=== PATIENT | female | born 1990 | race Caucasian/White ===

== ENCOUNTER 2017-04-02 11:43 | Emergency (ER) | payer OTHER ==
[~2017-04-02] VITALS: Ht 167.6 cm; Wt 96.0 kg
[~2017-04-02 11:43] MED LIST: MACR100C PO; PERC5TAB12 PO; Z.0.BCPILL PO; ZOFR4TAB3 SL
[2017-04-02 12:21] VITALS: BP 190/125; PULSE 82; RESP 16; TEMP 98.2; O2SAT 100
[2017-04-02 13:25] VITALS: BP 183/122; PULSE 78; RESP 20; O2SAT 98
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
[2017-04-02 14:01] VITALS: BP 186/108
[2017-04-02] MEDS ORDERED: LABETALOL HCL 100 MG/20 ML VIAL IV PUSH SCH (14:15)
[2017-04-02 14:52] LABS: BILIRUBIN, URINE NEG (NEG); BLOOD, URINE NEG (NEG); GLUCOSE,URINE NEG (NEG); KETONE, URINE NEG (NEG); NITRITE,URINE NEG (NEG); URINE LEUKOCYTE ESTERASE NEG (NEG)
[2017-04-02 14:54] VITALS: BP 190/117; PULSE 83; RESP 20; O2SAT 98
[2017-04-02 15:04] LABS: SQUAMOUS EPITHELIAL CELL URINE 0-5 /hpf (0-5); URINE COLOR YELLOW (YELLW/STRAW)
[2017-04-02] MEDS ORDERED: LABETALOL HCL 100 MG/20 ML VIAL IV PUSH ONE (15:15)
[2017-04-02] MEDS ORDERED: ZITHTAB PO (15:25)
[2017-04-02] MEDS ORDERED: LABE100T2 PO (15:25)
[2017-04-02 15:38] VITALS: BP 171/106; PULSE 87; O2SAT 98
[2017-04-03] MEDS ORDERED: PREN29TA PO (17:25)
== END 2017-04-02 16:02 | disposition home or self-care (01) ==
LOC: PHED 11:43
DX: O16.9 Unspecified maternal hypertension, unspecified trimester (principal); O99.512 Diseases of the respiratory system complicating pregnancy, second trimester; J06.9 Acute upper respiratory infection, unspecified; J45.909 Unspecified asthma, uncomplicated
CPT/HCPCS: 81001; 87804; 96374

== ENCOUNTER 2017-04-03 12:34 | Inpatient (IN) | payer OTHER ==
[~2017-04-03] VITALS: Ht 165.1 cm; Wt 96.0 kg
[2017-04-03] VITALS (43 sets, daily range): BP systolic 134–173; BP diastolic 85–118; PULSE 76–102; RESP 16–18; TEMP 98
[~2017-04-03 12:34] MED LIST changes: +LABE100T2 PO; -MACR100C PO; -PERC5TAB12 PO; -Z.0.BCPILL PO; +ZITHTAB PO; -ZOFR4TAB3 SL
[2017-04-03] MEDS ORDERED: MAGNESIUM SULFATE 40 GM PREMIX 1,000 ML IV SCH (13:59)
--- NOTE | 2017-04-03 13:59 | PD ---
HPI Chief Complaint High blood pressure Date Seen: Apr 03, 2017 Time Seen: 13:55 Travel History International Travel<30 Days: No Contact w/Intl Traveler<30Days: No Known Affected Area: No History of Present Illness HPI 27-year-old who is at 23 weeks and 6 days was seen in the [place] emergency department yesterday due to upper respiratory symptoms. While she was there patient developed hypertension she states her highest blood pressure was 184/123 and was given multiple doses of IV labetalol per patient oral history. Patient was discharged after a few hours and given azithromycin to take at home and labetalol 100 mg to take twice daily. Patient denies history of hypertension the past and states that she's had a uncomplicated thus far and has been normotensive during her . Weeks Gestation: 23 (23.6) Para: 0 : 1 History Past Medical History Medical History: Denies Significant Hx Past Surgical History Narrative Surgical Tonsillectomy Family History Family History: Negative Social History Alcohol Use: No Tobacco Use: No Substance Abuse: No Allergies-Medications (Allergen,Severity, Reaction): Coded Allergies: Sulfa (Sulfonamide Antibiotics) (Verified Allergy, Severe, RASH, 04/02/17) albuterol (Verified Allergy, Severe, NAUSEA, 04/02/17) penicillin G (Verified Allergy, Severe, RASH, 04/02/17) Home Meds Active Scripts Labetalol (Labetalol) 100 Mg Tab, 100 MG PO BID for Blood Pressure Management, # 60 TAB 0 Refills Prov:Mary Lou Jordan MD 04/02/17 Azithromycin (Zithromax Z-Nikhil) 250 Mg Dspk, 250 MG PO DIRECTED for Infection , #1 DSPK 0 Refills 500 MG (2 tabs) day 1, then 1 tab days 2-5. Prov:Mary Lou Jordan MD 04/02/17 Review of Systems Except as stated in HPI: all other systems reviewed are Neg Physical Exam Narrative GENERAL: Well-nourished, well-developed patient. SKIN: Warm and dry. HEAD: Normocephalic and atraumatic. EYES: No scleral icterus. No injection or drainage. ENT: No nasal drainage noted. Mucous membranes pink. Airway patent. NECK: Supple, trachea midline. No JVD. CARDIOVASCULAR: Regular rate and rhythm without murmurs, gallops, or rubs. RESPIRATORY: Breath sounds equal bilaterally. No accessory muscle use. BREASTS: Bilateral exam showed no masses , no retractions, no nipple discharge. ABDOMEN/GI: Abdomen soft, non-tender, bowel sounds present, no rebound, no guarding Gravid to [23-] weeks size Fundal Height: [-] GENITOURINARY: Deferred External Genitalia: intact and normal in appearance BUS glands: [-] Cervix: [-] Dilatation: [-] Effacement: [-] Station: [-] Presentation: [-] Membranes: [intact or ruptured] Uterine Contractions: [-] FHT's: Category: [1-] Baseline: [-] 140 Reactive: [-] Moderate Variability: [-] Moderate Decels: [-] Absent EXTREMITIES: No cyanosis or edema. BACK: Nontender without obvious deformity. No CVA tenderness. NEUROLOGICAL: Awake and alert. Motor and sensory grossly within normal limits. Five out of 5 muscle strength in all muscle groups. Normal speech. Data Data Vital Signs Reviewed: Yes (blood pressure is 174/115) [facility] Medical Record Reviewed: Yes Plan 27-year-old who is a 23 weeks, 6 days presents with severely elevated blood pressure and was seen yesterday in the [place] emergency department was placed on labetalol 100 mg twice daily. Patient will need to be admitted for blood pressure control, workup for preeclampsia, ultrasound, magnesium sulfate, possible betamethasone Diagnosis Diagnosis: Primary Impression: 23 weeks gestation of Additional Impression: Severe hypertension affecting in second trimester Pamela Petersen MD Apr 03, 2017 13:59
[2017-04-03] MEDS ORDERED: SODIUM CHLORIDE 0.9% FLUSH 10 ML FLUSH IV FLUSH PRN (14:00)
[2017-04-03] MEDS ORDERED: ACETAMINOPHEN 325 MG TAB PO PRN (14:00)
[2017-04-03] MEDS ORDERED: CALCIUM GLUCONATE 10% 1 GM/10 ML VIAL IV PUSH PRN (14:00)
[2017-04-03] MEDS ORDERED: ONDANSETRON HCL 4 MG/2 ML VIAL IV PUSH PRN (14:00)
[2017-04-03] MEDS ORDERED: MAGNESIUM SULFATE 4 GM PREMIX 100 ML IV ONE (14:00)
[2017-04-03] MEDS ORDERED: LABETALOL HCL 100 MG/20 ML VIAL IV PUSH PRN ×2 (14:00→14:15)
[2017-04-03] MEDS ORDERED: LIDOCAINE 2% JELLY 30 ML TUBE TOPICAL ONE (14:30)
[2017-04-03 14:36] LABS: HEMATOCRIT 38.3 % (35.0-46.0); MEAN CELL VOLUME 84.3 FL (80.0-100.0); MEAN CORPUSCULAR HEMOGLOBIN 28.7 PG (27.0-34.0); MEAN PLATELET VOLUME 9.4 FL (7.0-11.0); PLATELET COUNT 251 TH/MM3 (150-450); RED BLOOD COUNT 4.54 MIL/MM3 (4.00-5.30); RED CELL DISTRIBUTION WIDTH 13.4 % (11.6-17.2); WHITE BLOOD COUNT 12.6 TH/MM3 (4.0-11.0)
[2017-04-03] MEDS: LACTATED RINGER'S 1000 ML INJ 1,000 ML IV SCH (14:39)
[2017-04-03] MEDS: BETAMETHASONE SOD PHOS/ACETATE SUSP 30 MG/5 ML VIAL IM SCH (14:41)
[2017-04-03 15:01] LABS: ALBUMIN 2.8 GM/DL (3.4-5.0); ALT (GPT) 15 U/L (10-53); AST (GOT) 18 U/L (15-37); BICARBONATE 24.7 MEQ/L (21.0-32.0); BLOOD UREA NITROGEN 6 MG/DL (7-18); CALCIUM 9.2 MG/DL (8.5-10.1); CHLORIDE 106 MEQ/L (98-107); CREATININE 0.51 MG/DL (0.50-1.00); GLOMERULAR FILTRATION RATE 147 ML/MIN (>89); GLUCOSE,RANDOM 62 MG/DL (74-106); SODIUM (NA) 138 MEQ/L (136-145)
[2017-04-03 15:04] LABS: ALKALINE PHOSPHATASE 111 U/L (45-117); TOTAL BILIRUBIN ADULT 0.3 MG/DL (0.2-1.0); TOTAL PROTEIN 7.1 GM/DL (6.4-8.2)
[2017-04-03] MEDS ORDERED: LABETALOL HCL 100 MG/20 ML VIAL IV PUSH ONE (17:00)
[2017-04-03 17:09] LABS: BILIRUBIN, URINE NEG (NEG); BLOOD, URINE NEG (NEG); GLUCOSE,URINE NEG (NEG); KETONE, URINE NEG (NEG); NITRITE,URINE NEG (NEG); PH, URINE 5.5 (5.0-8.5); SQUAMOUS EPITHELIAL CELL URINE <1 /hpf (0-5); URINE COLOR LIGHT-YELLOW (YELLW/STRAW); URINE LEUKOCYTE ESTERASE NEG (NEG)
[2017-04-03] MEDS ORDERED: PREN29TA PO (17:25)
[2017-04-03] MEDS ORDERED: LIDOCAINE 2% JELLY 5 ML TUBE TOPICAL ONE (18:00)
--- NOTE | 2017-04-03 19:28 | PD.CONS ---
History & Physical H&P Pt seen this evening to discuss reason for admission. discussed that she had severe range BP and medication needed to be slowly titrated and that pre-e workup needed to be completed. She is receiving Magnesium and bms in the event that delivery may be necessary for protection. She states that she is feeling well other than sinus congestion. She denies any current CANCHOLA, no blurry vision, scotoma, RUQ or epigastric pain. She has received labetalol 20mg Iv and 40 mg IV and now has bp of 150/100's. Family is upset about the care they received at [facility]; She had IV medication and was sent home as soon as BP was not severe. Her BP logs at home were 140/ 100's. She called office today and had complaints of headaches. I reviewed her visit record from [facility] and recommended she come in to [facility] for pre- eclampsia workup. Discussed w pt that if she does have pre-eclampsia, usual care is to stay in hospital until delivery. Alternative of outpt management would still require bedrest and frequent labs and testing and would have to be approved by [facility]. Pt is not very happy about possibility of not being able to return to work. We had clark in place for accurate I/O and 24 hour urine collection but she did not tolerate it and requested removal. Since removal she is more comfortable. Udip negative protein, P:C both pr and cr under measurable limits. All labs wnl. Will repeat labs in am and await result of 24 hour urine for further management. She will receive nifedipine XR this evening. Will have q shift nst. Shira Hall MD Apr 03, 2017 19:28
[2017-04-03] MEDS: NIFEdipine 30 MG SUSTAINED RELEASE TAB PO SCH (20:05)
[2017-04-04] VITALS (41 sets, daily range): BP systolic 112–154; BP diastolic 66–102; PULSE 89–106; RESP 16–20; TEMP 97.7–98.8
[2017-04-04] MEDS: LACTATED RINGER'S 1000 ML INJ 1,000 ML IV SCH (03:03)
[2017-04-04 05:56] LABS: AUTOMATED NEUTROPHIL # 12.5 TH/MM3 (1.8-7.7); BASOPHIL % 0.1 % (0.0-2.0); HEMATOCRIT 38.3 % (35.0-46.0); HEMOGLOBIN 13.1 GM/DL (11.6-15.3); LYMPHOCYTE # 1.6 TH/MM3 (1.0-4.8); MEAN CELL VOLUME 84.1 FL (80.0-100.0); MEAN CORPUSCULAR HEMOGLOBIN 28.7 PG (27.0-34.0); MEAN CORPUSCULAR HGB CONC 34.1 % (32.0-36.0); MEAN PLATELET VOLUME 9.3 FL (7.0-11.0); MONOCYTE # 0.4 TH/MM3 (0-0.9); NEUT % 85.9 % (16.0-70.0); PLATELET COUNT 244 TH/MM3 (150-450); RED BLOOD COUNT 4.55 MIL/MM3 (4.00-5.30); RED CELL DISTRIBUTION WIDTH 14.1 % (11.6-17.2); WHITE BLOOD COUNT 14.5 TH/MM3 (4.0-11.0)
[2017-04-04 06:19] LABS: ALBUMIN 2.8 GM/DL (3.4-5.0); ALKALINE PHOSPHATASE 104 U/L (45-117); ALT (GPT) 14 U/L (10-53); AST (GOT) 12 U/L (15-37); BICARBONATE 22.7 MEQ/L (21.0-32.0); BLOOD UREA NITROGEN 3 MG/DL (7-18); CALCIUM 7.5 MG/DL (8.5-10.1); CHLORIDE 105 MEQ/L (98-107); GLOMERULAR FILTRATION RATE 150 ML/MIN (>89); GLUCOSE,RANDOM 113 MG/DL (74-106); SODIUM (NA) 136 MEQ/L (136-145); TOTAL BILIRUBIN ADULT 0.3 MG/DL (0.2-1.0); TOTAL PROTEIN 6.9 GM/DL (6.4-8.2)
--- NOTE | 2017-04-04 07:22 | PD.OB.ANTE ---
Subjective Diagnosis: (1) 24 weeks gestation of (2) Severe hypertension affecting in second trimester Interval History 27 yo mwf at 24 weeks who presented 48 hours ago to [place] ED for URT symptoms and to rule out influenza A. States she cannot get vaccine due to her mom's compromised immune system and desire to be around her. Influenza A negative but blood pressures were exceedingly high. She was discharged on oral antibiotic, but checked in with Dr. Rodriguez to verify this was appropriate and sent to our [facility] the next day (yesterday) Again BPs very high. No significant CANCHOLA above baseline. No nausea, vomiting, RUQT. Had not noticed significant swelling, blurred vision. Was having consistent movement. No signs of labor. Hypertensive protocol with labetalol was not adequate and her BPs only went down with procardia orally. They have since remained normal. She remains assymptomatic. Labs are entirely normal so far. PNC with Dr. Rodriguez has been unremarkable. No personal history or autoimmune or hypertensive disease although she has had lupus work ups in past for personal rosaciea and history of SLE in her mother. There is a strong family history or essential hypertension. She does not smoke, drink or use illicit drugs. 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 Good family support system. Objective Vital Signs Vital Signs Date Time Temp Pulse Resp B/P (MAP) Pulse Ox O2 Delivery O2 Flow Rate FiO2 04/04/17 07:00 103 142/94 (110) 04/04/17 06:07 16 04/04/17 05:29 16 04/04/17 05:00 98 123/75 (91) 04/04/17 04:30 16 04/04/17 04:00 100 112/67 (82) 04/04/17 03:30 97.7 18 04/04/17 03:00 94 121/76 (91) 04/04/17 02:30 18 04/04/17 02:00 102 122/79 (93) 04/04/17 01:00 102 122/66 (84) 04/04/17 00:19 97.7 04/04/17 00:10 16 04/04/17 00:00 99 125/81 (96) 1/30/18 23:00 101 16 144/97 (113) 04/03/17 22:07 16 04/03/17 22:00 98 134/85 (101) 04/03/17 21:15 16 04/03/17 21:03 98 159/98 (118) 04/03/17 20:00 98.0 16 04/03/17 19:59 99 149/101 (117) 04/03/17 19:55 96 04/03/17 19:35 102 04/03/17 19:30 100 04/03/17 18:31 88 153/101 (118) 04/03/17 18:30 93 04/03/17 18:25 87 04/03/17 18:20 92 04/03/17 18:15 92 04/03/17 18:10 93 04/03/17 18:05 91 04/03/17 18:01 97 154/107 (123) 04/03/17 18:00 88 04/03/17 17:30 98.0 18 04/03/17 17:27 90 144/96 (112) 04/03/17 17:25 91 04/03/17 17:16 92 151/107 (122) 04/03/17 17:15 90 04/03/17 16:43 95 173/118 (136) 04/03/17 16:40 88 04/03/17 16:31 86 173/107 (129) 04/03/17 16:30 87 04/03/17 16:01 86 156/100 (118) 04/03/17 16:00 87 04/03/17 15:41 81 18 157/105 (122) 04/03/17 15:40 91 04/03/17 15:05 85 04/03/17 15:05 84 157/106 (123) 04/03/17 15:01 88 165/107 (126) 04/03/17 14:55 90 159/109 (126) 04/03/17 14:50 93 155/115 (128) 04/03/17 14:46 87 159/111 (127) 04/03/17 14:40 90 04/03/17 14:40 85 164/107 (126) 04/03/17 14:36 18 04/03/17 14:35 80 153/106 (122) 04/03/17 14:35 77 04/03/17 14:33 76 154/107 (123) 04/03/17 14:31 81 156/106 (123) 04/03/17 14:30 90 Lab & Micro Results Test 04/03/17 14:19 04/03/17 16:30 04/04/17 05:06 White Blood Count 12.6 TH/MM3 14.5 TH/MM3 Red Blood Count 4.54 MIL/MM3 4.55 MIL/MM3 Hemoglobin 13.0 GM/DL 13.1 GM/DL Hematocrit 38.3 % 38.3 % Mean Corpuscular Volume 84.3 FL 84.1 FL Mean Corpuscular Hemoglobin 28.7 PG 28.7 PG Mean Corpuscular Hemoglobin Concent 34.0 % 34.1 % Red Cell Distribution Width 13.4 % 14.1 % Platelet Count 251 TH/MM3 244 TH/MM3 Mean Platelet Volume 9.4 FL 9.3 FL Blood Urea Nitrogen 6 MG/DL 3 MG/DL Creatinine 0.51 MG/DL 0.50 MG/DL Random Glucose 62 MG/DL 113 MG/DL Total Protein 7.1 GM/DL 6.9 GM/DL Albumin 2.8 GM/DL 2.8 GM/DL Calcium Level 9.2 MG/DL 7.5 MG/DL Uric Acid 4.3 MG/DL 4.5 MG/DL Alkaline Phosphatase 111 U/L 104 U/L Aspartate Amino Transf (AST/SGOT) 18 U/L 12 U/L Alanine Aminotransferase (ALT/SGPT) 15 U/L 14 U/L Total Bilirubin 0.3 MG/DL 0.3 MG/DL Sodium Level 138 MEQ/L 136 MEQ/L Potassium Level 4.4 MEQ/L 4.0 MEQ/L Chloride Level 106 MEQ/L 105 MEQ/L Carbon Dioxide Level 24.7 MEQ/L 22.7 MEQ/L Anion Gap 7 MEQ/L 8 MEQ/L Estimat Glomerular Filtration Rate 147 ML/MIN 150 ML/MIN Urine Color LIGHT-YELLOW Urine Turbidity CLEAR Urine pH 5.5 Urine Specific [place] 1.004 Urine Protein NEG mg/dL Urine Glucose (UA) NEG mg/dL Urine Ketones NEG mg/dL Urine Occult Blood NEG Urine Nitrite NEG Urine Bilirubin NEG Urine Urobilinogen LESS THAN 2.0 MG/DL Urine Leukocyte Esterase NEG Urine RBC LESS THAN 1 /hpf Urine WBC LESS THAN 1 /hpf Urine Squamous Epithelial Cells <1 /hpf Microscopic Urinalysis Comment CULT NOT INDICATED Urine Random Creatinine LESS THAN 13 MG/DL Urine Random Total Protein LESS THAN 5 MG/DL Urine Protein/Creatinine Ratio 0.00 Urine Opiates Screen NEG Urine Barbiturates Screen NEG Urine Amphetamines Screen NEG Urine Benzodiazepines Screen NEG Urine Cocaine Screen NEG Urine Cannabinoids Screen NEG Neutrophils (%) (Auto) 85.9 % Lymphocytes (%) (Auto) 11.0 % Monocytes (%) (Auto) 3.0 % Eosinophils (%) (Auto) 0.0 % Basophils (%) (Auto) 0.1 % Neutrophils # (Auto) 12.5 TH/MM3 Lymphocytes # (Auto) 1.6 TH/MM3 Monocytes # (Auto) 0.4 TH/MM3 Eosinophils # (Auto) 0.0 TH/MM3 Basophils # (Auto) 0.0 TH/MM3 CBC Comment DIFF FINAL Differential Comment Physical Exam GENERAL: Well-nourished, well-developed patient. CARDIOVASCULAR: Regular rate and rhythm without murmurs, gallops, or rubs. RESPIRATORY: Breath sounds equal bilaterally. No accessory muscle use. ABDOMEN/GI: Abdomen soft, non-tender. strip 140s with no decel EXTREMITIES: No cyanosis or edema, non-tender, without signs of DVT. not hyper reflexic not overswollen no rash Assessment and Plan Assessment and Plan 24 week IUP with acute and unexpected hypertensive crisis, now normotensive on procardia work up negative so far. family hx HTN, and lupus Need to repeat autoimmune work up down in the past and negative need to see how BPs react to normal activity once magnesium turned off need to see remaining diagnostics. Teetee Marte MD Apr 04, 2017 07:22
[2017-04-04] MEDS: SODIUM CHLORIDE 0.9% FLUSH 10 ML FLUSH IV FLUSH SCH ×2 (08:28→20:42)
[2017-04-04] MEDS: NIFEdipine 30 MG SUSTAINED RELEASE TAB PO SCH (08:36)
[2017-04-04 10:21] LABS: RHEUMATOID FACTOR SCREEN NEGATIVE (NEGATIVE)
[2017-04-04] MEDS: LABETALOL HCL 100 MG TAB PO SCH ×2 (12:06→20:42)
--- NOTE | 2017-04-04 12:20 | PD.OB.ANTE ---
Subjective Diagnosis: (1) 24 weeks gestation of (2) Severe hypertension affecting in second trimester Interval History BP remains elevated and labetolol 100 BID added. Objective Vital Signs Vital Signs Date Time Temp Pulse Resp B/P (MAP) Pulse Ox O2 Delivery O2 Flow Rate FiO2 04/04/17 12:06 102 146/99 (115) 04/04/17 11:01 103 143/98 (113) 04/04/17 09:59 105 144/102 (116) 04/04/17 09:01 102 139/98 (112) 04/04/17 08:30 18 04/04/17 08:25 101 04/04/17 08:20 106 04/04/17 08:15 105 04/04/17 08:10 100 04/04/17 08:05 104 04/04/17 08:00 104 141/94 (110) 04/04/17 08:00 106 04/04/17 07:20 97.8 18 04/04/17 07:17 100 132/97 (109) 04/04/17 07:00 103 142/94 (110) 04/04/17 06:07 16 04/04/17 05:29 16 04/04/17 05:00 98 123/75 (91) 04/04/17 04:30 16 04/04/17 04:00 100 112/67 (82) 04/04/17 03:30 97.7 18 04/04/17 03:00 94 121/76 (91) 04/04/17 02:30 18 04/04/17 02:00 102 122/79 (93) 04/04/17 01:00 102 122/66 (84) 04/04/17 00:19 97.7 04/04/17 00:10 16 04/04/17 00:00 99 125/81 (96) 04/03/17 23:00 101 16 144/97 (113) 04/03/17 22:07 16 04/03/17 22:00 98 134/85 (101) 04/03/17 21:15 16 04/03/17 21:03 98 159/98 (118) 04/03/17 20:00 98.0 16 04/03/17 19:59 99 149/101 (117) 04/03/17 19:55 96 04/03/17 19:35 102 04/03/17 19:30 100 04/03/17 18:31 88 153/101 (118) 04/03/17 18:30 93 04/03/17 18:25 87 04/03/17 18:20 92 04/03/17 18:15 92 04/03/17 18:10 93 04/03/17 18:05 91 04/03/17 18:01 97 154/107 (123) 04/03/17 18:00 88 04/03/17 17:30 98.0 18 04/03/17 17:27 90 144/96 (112) 04/03/17 17:25 91 04/03/17 17:16 92 151/107 (122) 04/03/17 17:15 90 04/03/17 16:43 95 173/118 (136) 04/03/17 16:40 88 04/03/17 16:31 86 173/107 (129) 04/03/17 16:30 87 04/03/17 16:01 86 156/100 (118) 04/03/17 16:00 87 04/03/17 15:41 81 18 157/105 (122) 04/03/17 15:40 91 04/03/17 15:05 85 04/03/17 15:05 84 157/106 (123) 04/03/17 15:01 88 165/107 (126) 04/03/17 14:55 90 159/109 (126) 04/03/17 14:50 93 155/115 (128) 04/03/17 14:46 87 159/111 (127) 04/03/17 14:40 90 04/03/17 14:40 85 164/107 (126) 04/03/17 14:36 18 04/03/17 14:35 80 153/106 (122) 04/03/17 14:35 77 04/03/17 14:33 76 154/107 (123) 04/03/17 14:31 81 156/106 (123) 04/03/17 14:30 90 Lab & Micro Results Test 04/03/17 14:19 04/03/17 16:30 04/04/17 05:06 04/04/17 08:40 White Blood Count 12.6 TH/MM3 14.5 TH/MM3 Red Blood Count 4.54 MIL/MM3 4.55 MIL/MM3 Hemoglobin 13.0 GM/DL 13.1 GM/DL Hematocrit 38.3 % 38.3 % Mean Corpuscular Volume 84.3 FL 84.1 FL Mean Corpuscular Hemoglobin 28.7 PG 28.7 PG Mean Corpuscular Hemoglobin Concent 34.0 % 34.1 % Red Cell Distribution Width 13.4 % 14.1 % Platelet Count 251 TH/MM3 244 TH/MM3 Mean Platelet Volume 9.4 FL 9.3 FL Blood Urea Nitrogen 6 MG/DL 3 MG/DL Creatinine 0.51 MG/DL 0.50 MG/DL Random Glucose 62 MG/DL 113 MG/DL Total Protein 7.1 GM/DL 6.9 GM/DL Albumin 2.8 GM/DL 2.8 GM/DL Calcium Level 9.2 MG/DL 7.5 MG/DL Uric Acid 4.3 MG/DL 4.5 MG/DL Alkaline Phosphatase 111 U/L 104 U/L Aspartate Amino Transf (AST/SGOT) 18 U/L 12 U/L Alanine Aminotransferase (ALT/SGPT) 15 U/L 14 U/L Total Bilirubin 0.3 MG/DL 0.3 MG/DL Sodium Level 138 MEQ/L 136 MEQ/L Potassium Level 4.4 MEQ/L 4.0 MEQ/L Chloride Level 106 MEQ/L 105 MEQ/L Carbon Dioxide Level 24.7 MEQ/L 22.7 MEQ/L Anion Gap 7 MEQ/L 8 MEQ/L Estimat Glomerular Filtration Rate 147 ML/MIN 150 ML/MIN Urine Color LIGHT-YELLOW Urine Turbidity CLEAR Urine pH 5.5 Urine Specific [place] 1.004 Urine Protein NEG mg/dL Urine Glucose (UA) NEG mg/dL Urine Ketones NEG mg/dL Urine Occult Blood NEG Urine Nitrite NEG Urine Bilirubin NEG Urine Urobilinogen LESS THAN 2.0 MG/DL Urine Leukocyte Esterase NEG Urine RBC LESS THAN 1 /hpf Urine WBC LESS THAN 1 /hpf Urine Squamous Epithelial Cells <1 /hpf Microscopic Urinalysis Comment CULT NOT INDICATED Urine Random Creatinine LESS THAN 13 MG/DL Urine Random Total Protein LESS THAN 5 MG/DL Urine Protein/Creatinine Ratio 0.00 Urine Opiates Screen NEG Urine Barbiturates Screen NEG Urine Amphetamines Screen NEG Urine Benzodiazepines Screen NEG Urine Cocaine Screen NEG Urine Cannabinoids Screen NEG Neutrophils (%) (Auto) 85.9 % Lymphocytes (%) (Auto) 11.0 % Monocytes (%) (Auto) 3.0 % Eosinophils (%) (Auto) 0.0 % Basophils (%) (Auto) 0.1 % Neutrophils # (Auto) 12.5 TH/MM3 Lymphocytes # (Auto) 1.6 TH/MM3 Monocytes # (Auto) 0.4 TH/MM3 Eosinophils # (Auto) 0.0 TH/MM3 Basophils # (Auto) 0.0 TH/MM3 CBC Comment DIFF FINAL Differential Comment C-Reactive Protein 0.88 MG/DL Rheumatoid Factor Screen NEGATIVE Rheumatoid Factor Titer IU/ML Physical Exam GENERAL: Well-nourished, well-developed patient. CARDIOVASCULAR: Regular rate and rhythm without murmurs, gallops, or rubs. RESPIRATORY: Breath sounds equal bilaterally. No accessory muscle use. ABDOMEN/GI: Abdomen soft, non-tender. Fundus: [-] GENITOURINARY: External Genitalia: intact and normal in appearance Cervix: [-] Dilatation: [-] Effacement: [-] Station: [-] Presentation: [-] Membranes: [-] Uterine Contractions: [-] FHT's: Category: [-] Baseline: [-] Reactive: [-] Variability: [-] Decels: [-] EXTREMITIES: No cyanosis or edema, non-tender, without signs of DVT. Assessment and Plan Problem List: (1) 24 weeks gestation of ICD Codes: Z3A.24 - 24 weeks gestation of (2) Severe hypertension affecting in second trimester ICD Codes: O16.2 - Unspecified maternal hypertension, second trimester Status: Acute Assessment and Plan 24 week IUP with acute and unexpected hypertensive crisis, now normotensive on procardia work up negative so far. family hx HTN, and lupus Need to repeat autoimmune work up down in the past and negative need to see how BPs react to normal activity once magnesium turned off need to see remaining diagnostics. Teetee Marte MD Apr 04, 2017 12:20
[2017-04-04] MEDS: BETAMETHASONE SOD PHOS/ACETATE SUSP 30 MG/5 ML VIAL IM SCH (14:37)
[2017-04-05] VITALS (8 sets, daily range): BP systolic 124–138; BP diastolic 75–95; PULSE 73–92; RESP 16–18; TEMP 97.9–98.2
--- NOTE | 2017-04-05 08:01 | PD.OB.ANTE ---
Subjective Diagnosis: (1) 24 weeks gestation of (2) Severe hypertension affecting in second trimester Interval History 24 wks, s/p celestone x2, MgSO4 IV, 24 hr urine 277 mg protein, no CANCHOLA, no BV, no CP, good FM, no ctx Objective Vital Signs Vital Signs Date Time Temp Pulse Resp B/P (MAP) Pulse Ox O2 Delivery O2 Flow Rate FiO2 04/05/17 06:19 18 04/05/17 06:15 77 132/77 (95) 04/05/17 03:33 97.9 04/05/17 03:19 81 124/81 (95) 04/05/17 03:18 18 04/05/17 00:21 98.2 16 04/05/17 00:21 92 128/75 (92) 04/04/17 22:15 102 04/04/17 22:10 101 04/04/17 22:05 101 04/04/17 22:00 99 04/04/17 21:55 97 04/04/17 21:44 92 134/73 (93) 04/04/17 20:40 98.1 16 04/04/17 20:25 89 154/80 (104) 04/04/17 16:45 98.8 20 04/04/17 16:38 100 125/75 (92) 04/04/17 14:30 18 04/04/17 14:00 97 137/83 (101) 04/04/17 12:54 18 04/04/17 12:53 100 136/94 (108) 04/04/17 12:06 102 146/99 (115) 04/04/17 11:01 103 143/98 (113) 04/04/17 09:59 105 144/102 (116) 04/04/17 09:01 102 139/98 (112) 04/04/17 08:30 18 04/04/17 08:25 101 04/04/17 08:20 106 04/04/17 08:15 105 04/04/17 08:10 100 04/04/17 08:05 104 04/04/17 08:00 104 141/94 (110) 04/04/17 08:00 106 Lab & Micro Results Test 04/04/17 08:40 04/04/17 14:00 C-Reactive Protein 0.88 MG/DL Rheumatoid Factor Screen NEGATIVE Rheumatoid Factor Titer IU/ML Anti-Nuclear Antibody Screen NEG Urine Total Volume 24 Hours 4400 ML Urine Total Protein 24 Hour 277 MG/24HR Physical Exam GENERAL: Well-nourished, well-developed patient. CARDIOVASCULAR: Regular rate and rhythm without murmurs, gallops, or rubs. RESPIRATORY: Breath sounds equal bilaterally. No accessory muscle use. ABDOMEN/GI: Abdomen soft, non-tender. Fundus: [-] GENITOURINARY: External Genitalia: intact and normal in appearance Cervix: [-] Dilatation: [-] Effacement: [-] Station: [-] Presentation: [-] Membranes: [-] Uterine Contractions: [-] FHT's: Category: [-] 1 Baseline: [-] Reactive: [-] Variability: [-] Decels: [-] EXTREMITIES: No cyanosis or edema, non-tender, without signs of DVT. Assessment and Plan Problem List: (1) 24 weeks gestation of ICD Codes: Z3A.24 - 24 weeks gestation of (2) Severe hypertension affecting in second trimester ICD Codes: O16.2 - Unspecified maternal hypertension, second trimester Status: Acute Assessment and Plan 24 week IUP with acute and unexpected hypertensive crisis, now normotensive on procardia and labetolol work up negative so far. family hx HTN, and lupus normal UA dopplers, baby growing well, breech, ant plac, 600 gm will discharge home on bedrest until 28 wks, weekly office visits baby Delmi Garcia MD Apr 05, 2017 08:01
[2017-04-05] MEDS ORDERED: NIFE30TA8 PO (08:04)
--- NOTE | 2017-04-05 08:04 | HHI.DCPOC ---
Discharge Care Plan Your Health Problems Are: Pelvic pain Report Symptoms to Your Doctor -Temperature above 100.5 degrees -Redness, of incision or excessive or foul smelling drainage -Unusual pain or calf pain -Increased vaginal bleeding -Painful or difficulty urinating -Feelings of extreme sadness or anxiety after 2 weeks Goals to Promote Your Health * To prevent worsening of your condition and complications * To maintain your health at the optimal level Directions to Meet Your Goals Take your medications as prescribed Follow your dietary instruction Follow activity as directed Ensure plenty of rest for recovery Drink fluids for hydration Keep your appointments as scheduled Take your immunizations and boosters as scheduled If your symptoms worsen call your PCP, if no PCP go to Urgent Care Center or Emergency Room Smoking is Dangerous to Your Health. Avoid second hand smoke Call the 24-hour crisis hotline for domestic abuse at Delmi Rodriguez MD Apr 05, 2017 08:04
[2017-04-05] MEDS: NIFEdipine 30 MG SUSTAINED RELEASE TAB PO SCH (08:09)
[2017-04-05] MEDS: LABETALOL HCL 100 MG TAB PO SCH (08:09)
[2017-04-05] MEDS ORDERED: ASPIRIN 81 MG CHEW TAB PO SCH (09:00)
[2017-04-06 15:52] LABS: DRVVT 1:1 MIX ND (CORRECTED); DRVVT CONFIRM ND (NEGATIVE); HEXAGONAL PHASE CONFIRM ND (NEGATIVE)
[2017-04-06 19:53] LABS: SJOGRENS ANTIBODY SS-A <1.0 NEG AI (<1.0 NEGATIVE); SJOGRENS ANTIBODY SS-B <1.0 NEG AI (<1.0 NEGATIVE)
== END 2017-04-05 09:09 | disposition home or self-care (01) | DRG 781 ==
LOC: HOBED 12:34 → H2EB 14:02 → OBSVTOIN 14:02 → UNDOADMOB 15:40 → H2EB 15:40 → UNDODISOB 04-05 09:09
PROVIDERS: ADMIT Obstetrics & Gynecology; ATTEND Obstetrics & Gynecology
DX: O16.2 Unspecified maternal hypertension, second trimester (principal); Z82.49 Family history of ischemic heart disease and other diseases of the circulatory system; Z3A.24 24 weeks gestation of pregnancy
CPT/HCPCS: 76816; 80053; 80307; 81001; 82570; 83090; 84156; 84157; 84550; 85025; 85027; 85613; 85730; 86038; 86140; 86235; 86430; G0481; J0702; J3475; J7120

== ENCOUNTER 2017-05-07 22:24 | Inpatient (IN) | payer OTHER ==
[~2017-05-07] VITALS: Ht 165.1 cm; Wt 97.5 kg
[~2017-05-07 22:24] MED LIST changes: +NIFE30TA8 PO; +PREN29TA PO
[2017-05-07 22:52] VITALS: BP 186/124; PULSE 81
[2017-05-07] MEDS ORDERED: ONDANSETRON HCL 4 MG/2 ML VIAL IV PUSH PRN (23:00)
[2017-05-07] MEDS ORDERED: SODIUM CHLORIDE 0.9% FLUSH 10 ML FLUSH IV FLUSH PRN ×2 (23:00)
[2017-05-07] MEDS ORDERED: ONDANSETRON HCL 4 MG/2 ML VIAL IV PUSH ONE ×2 (23:00)
[2017-05-07] MEDS ORDERED: CALCIUM GLUCONATE 10% 1 GM/10 ML VIAL IV PUSH PRN (23:00)
[2017-05-07] MEDS ORDERED: MAGNESIUM SULFATE 4 GM PREMIX 100 ML IV ONE (23:00)
[2017-05-07] MEDS ORDERED: LABETALOL HCL 100 MG/20 ML VIAL IV PUSH PRN (23:00)
[2017-05-07] MEDS: LACTATED RINGER'S 1000 ML INJ 1,000 ML IV SCH (23:00)
--- NOTE | 2017-05-07 23:16 | PD ---
HPI Chief Complaint Epigastric pain Date Seen: May 07, 2017 Time Seen: 23:05 Travel History International Travel<30 Days: No Contact w/Intl Traveler<30Days: No Known Affected Area: No History of Present Illness HPI 27-year-old who is at 28 weeks 5 days comes in complaining of epigastric pain that began 2 hours ago and states that it has been worsening since then. Patient had an unexpected severe hypertensive crisis on April 02 when she was admitted here to [facility] and started on Procardia 30 mg XL daily and labetalol 200 mg in the morning 100 mg in the afternoon and 200 mg at night. Total urine protein over 24 hours on that admission was 277 mg and she recently repeated the 24 hour urine protein but does not know the result. Patient states that her blood pressure cuffs at home have been normotensive and her follow-up visits to the office have been normal. She is also been taking aspirin daily. She received betamethasone on that admission April 03. No additional renal workup was performed at that time. Patient has had a follow- up ultrasound done 2 weeks ago to recheck the baby spine but no estimated weights were given to the patient. Patient denies headache, visual changes, or edema Weeks Gestation: 28 Para: 0 : 1 History Past Medical History Narrative Medical Recent diagnosis of hypertension on April 03 Obstetric History Obstetric History See HPI Family History Family History: Negative Social History Alcohol Use: No Tobacco Use: No Substance Abuse: No Allergies-Medications (Allergen,Severity, Reaction): Coded Allergies: Sulfa (Sulfonamide Antibiotics) (Verified Allergy, Severe, RASH, 04/03/17) albuterol (Verified Allergy, Severe, NAUSEA, 04/03/17) penicillin G (Verified Allergy, Severe, RASH, 04/03/17) Home Meds Active Scripts Nifedipine ER 24 HR (Nifedipine ER 24 HR) 30 Mg Tab, 30 MG PO DAILY for Blood Pressure Management, #30 TAB 4 Refills Prov:Delmi Rodriguez MD 04/05/17 Labetalol (Labetalol) 100 Mg Tab, 100 MG PO BID for Blood Pressure Management, # 60 TAB 0 Refills Prov:Mary Lou Jordan MD 04/02/17 Azithromycin (Zithromax Z-Nikhil) 250 Mg Dspk, 250 MG PO DIRECTED for Infection , #1 DSPK 0 Refills 500 MG (2 tabs) day 1, then 1 tab days 2-5. Prov:Mary Lou Jordan MD 04/02/17 Reported Medications Vit-Iron Carbonyl ( Plus Iron 29-1 mg) 29 Mg Iron-1 Mg Tab, 1 TAB PO DAILY for Nutritional Supplement, #30 TAB 0 Refills 04/03/17 Review of Systems Except as stated in HPI: all other systems reviewed are Neg Physical Exam Narrative GENERAL: Well-nourished, well-developed patient. SKIN: Warm and dry. HEAD: Normocephalic and atraumatic. EYES: No scleral icterus. No injection or drainage. ENT: No nasal drainage noted. Mucous membranes pink. Airway patent. NECK: Supple, trachea midline. No JVD. CARDIOVASCULAR: Regular rate and rhythm without murmurs, gallops, or rubs. RESPIRATORY: Breath sounds equal bilaterally. No accessory muscle use. ABDOMEN/GI: Abdomen soft, non-tender, bowel sounds present, no rebound, no guarding Gravid to [28-] weeks size Fundal Height: [-] GENITOURINARY: Deferred External Genitalia: intact and normal in appearance BUS glands: [-] Cervix: [-] Dilatation: [-] Effacement: [-] Station: [-] Presentation: [-] Membranes: [intact or ruptured] Uterine Contractions: [-] FHT's: Category: [1-] Baseline: [-140] Reactive: [-Moderate] Variability: [Moderate-] Decels: [Absent-] EXTREMITIES: No cyanosis or edema. BACK: Nontender without obvious deformity. No CVA tenderness. NEUROLOGICAL: Awake and alert. Motor and sensory grossly within normal limits. Five out of 5 muscle strength in all muscle groups. Normal speech. Data Data Vital Signs Reviewed: Yes Orders Orders Vital Signs (Adult) .ON ADMISSION (05/07/17 22:57) ^ Labor Status (05/07/17 22:57) Urinalysis - C+S If Indicated (05/07/17 22:57) ^ Non Stress Test (05/07/17 22:57) Cbc No Diff, Includes Plts (05/07/17 22:57) Comprehensive Metabolic Panel (05/07/17 22:57) Uric Acid (05/07/17 22:57) Type And Screen (05/07/17 22:57) Ondansetron Inj (Zofran Inj) (05/07/17 23:00) Ondansetron Inj (Zofran Inj) (05/07/17 23:00) Drug Screen, Random Urine (05/07/17 22:57) Protein Creat Ratio, Random Ur (05/07/17 22:57) Total Protein 24hr Urine (05/07/17 22:57) Ob (2e) Additional Admit Info (05/07/17 23:01) Admit To Inpatient (05/07/17 ) Diet Npo (05/08/17 Breakfast) Vital Signs (Adult) ANAIS.O1E-DAQJE AWAKE (05/07/17 23:00) Heart (05/07/17 23:00) Activity Bed Rest With Brp (05/07/17 23:00) Sodium Chloride 0.9% Flush (Ns Flush) (05/08/17 09:00) Sodium Chloride 0.9% Flush (Ns Flush) (05/07/17 23:00) Ondansetron Inj (Zofran Inj) (05/07/17 23:00) Admit To Inpatient (05/07/17 ) Vital Signs (Adult) Q5MX4,Q15MX4,Q30MX2,Q1H (05/07/17 23:00) Activity Bed Rest (05/07/17 23:00) Intake + Output Q1H (05/07/17 23:00) Notify DrCuauhtemoc Parameters (05/07/17 23:00) Heart CONTINUOUS (05/07/17 23:00) Urinary Catheter Management ANAIS.Q8H (05/07/17 23:00) ^ Check Deep Tendon Reflexes Q1H (05/07/17 23:00) Lactated Ringer's 1000 Ml Inj (Lr 1000 M (05/07/17 23:00) Sodium Chloride 0.9% Flush (Ns Flush) (05/07/17 23:00) Sodium Chloride 0.9% Flush (Ns Flush) (05/08/17 09:00) Magnesium Sulfate 40 Gm Premix (Magnesiu (05/07/17 23:00) Labetalol Inj (Trandate Inj) (05/07/17 23:00) Calcium Gluconate Inj (Calcium Gluconate (05/07/17 23:00) Creatinine 24 Hr Urine (05/07/17 23:00) Magnesium Sulfate 4 Gm Premix (Magnesium (05/07/17 23:00) Inpatient Certification (05/07/17 ) [facility] Medical Record Reviewed: Yes Plan 27-year-old at 28 weeks and 5 days with hypertension diagnosed this , compliant on Procardia and labetalol with exacerbation of hypertension and new onset epigastric pain We will check PIH labs, repeat 24-hour urine protein, start magnesium sulfate, and began treatment for severe hypertension Discussed care and admission with Dr. Hall, betamethasone will be ordered Ultrasound for estimated weight and Doppler Pamela Petersen MD May 07, 2017 23:16
[2017-05-07 23:27] LABS: HEMOGLOBIN 13.5 GM/DL (11.6-15.3); MEAN CELL VOLUME 82.7 FL (80.0-100.0); MEAN CORPUSCULAR HEMOGLOBIN 28.7 PG (27.0-34.0); MEAN CORPUSCULAR HGB CONC 34.7 % (32.0-36.0); MEAN PLATELET VOLUME 8.9 FL (7.0-11.0); PLATELET COUNT 187 TH/MM3 (150-450); RED BLOOD COUNT 4.72 MIL/MM3 (4.00-5.30); RED CELL DISTRIBUTION WIDTH 13.4 % (11.6-17.2); WHITE BLOOD COUNT 19.3 TH/MM3 (4.0-11.0)
[2017-05-07 23:30] LABS: BILIRUBIN, URINE NEG (NEG); BLOOD, URINE TRACE (NEG); GLUCOSE,URINE NEG (NEG); HYALINE CAST, URINE 1 /lpf (RARE); KETONE, URINE NEG (NEG); MUCUS URINE FEW /lpf (OCC); NITRITE,URINE NEG (NEG); PH, URINE 7.5 (5.0-8.5); SQUAMOUS EPITHELIAL CELL URINE 1 /hpf (0-5); URINE COLOR YELLOW (YELLW/STRAW); URINE LEUKOCYTE ESTERASE NEG (NEG)
[2017-05-07] MEDS ORDERED: BETAMETHASONE SOD PHOS/ACETATE SUSP 30 MG/5 ML VIAL IM SCH (23:30)
[2017-05-07] MEDS ORDERED: LABE200T2 PO (23:35)
[2017-05-07 23:38] VITALS: BP 174/118; PULSE 81
[2017-05-07] MEDS: MAGNESIUM SULFATE 40 GM PREMIX 1,000 ML IV SCH (23:40)
[2017-05-07 23:41] VITALS: BP 166/115; PULSE 80
[2017-05-07 23:46] VITALS: BP 159/115; PULSE 85
[2017-05-07 23:47] LABS: ALBUMIN 2.9 GM/DL (3.4-5.0); AST (GOT) 89 U/L (15-37); BICARBONATE 25.2 MEQ/L (21.0-32.0); BLOOD UREA NITROGEN 10 MG/DL (7-18); CALCIUM 9.2 MG/DL (8.5-10.1); CHLORIDE 102 MEQ/L (98-107); CREATININE 0.63 MG/DL (0.50-1.00); GLOMERULAR FILTRATION RATE 115 ML/MIN (>89); GLUCOSE,RANDOM 83 MG/DL (74-106); SODIUM (NA) 137 MEQ/L (136-145)
[2017-05-07 23:48] LABS: ALT (GPT) 65 U/L (10-53)
[2017-05-07 23:50] LABS: ALKALINE PHOSPHATASE 165 U/L (45-117); TOTAL BILIRUBIN ADULT 0.4 MG/DL (0.2-1.0); TOTAL PROTEIN 7.1 GM/DL (6.4-8.2)
[2017-05-07 23:51] VITALS: BP 158/115; PULSE 86
[2017-05-07 23:56] VITALS: BP 156/113; PULSE 85
[2017-05-08] VITALS (38 sets, daily range): BP systolic 131–170; BP diastolic 89–113; PULSE 75–103; RESP 16–20; TEMP 97.9–98.3; O2SAT 98–100
[2017-05-08] MEDS ORDERED: LABETALOL HCL 100 MG/20 ML VIAL IV PUSH ONE
[2017-05-08] MEDS ORDERED: NIFEdipine 10 MG CAP ONE (00:25)
[2017-05-08] MEDS ORDERED: NIFEdipine 10 MG CAP PO SCH (00:30)
[2017-05-08 08:02] LABS: AUTOMATED NEUTROPHIL # 15.9 TH/MM3 (1.8-7.7); BASOPHIL % 0.1 % (0.0-2.0); HEMATOCRIT 38.2 % (35.0-46.0); HEMOGLOBIN 13.1 GM/DL (11.6-15.3); LYMPH % 8.6 % (9.0-44.0); LYMPHOCYTE # 1.5 TH/MM3 (1.0-4.8); MEAN CELL VOLUME 83.7 FL (80.0-100.0); MEAN CORPUSCULAR HEMOGLOBIN 28.7 PG (27.0-34.0); MEAN CORPUSCULAR HGB CONC 34.3 % (32.0-36.0); MEAN PLATELET VOLUME 8.8 FL (7.0-11.0); MONO % 1.2 % (0.0-8.0); MONOCYTE # 0.2 TH/MM3 (0-0.9); NEUT % 90.1 % (16.0-70.0); PLATELET COUNT 149 TH/MM3 (150-450); RED BLOOD COUNT 4.56 MIL/MM3 (4.00-5.30); RED CELL DISTRIBUTION WIDTH 13.8 % (11.6-17.2); WHITE BLOOD COUNT 17.6 TH/MM3 (4.0-11.0)
[2017-05-08] MEDS ORDERED: LABETALOL HCL 200 MG TAB PO ONE (08:30)
[2017-05-08 08:31] LABS: ALBUMIN 2.7 GM/DL (3.4-5.0); ALKALINE PHOSPHATASE 165 U/L (45-117); ALT (GPT) 73 U/L (10-53); AST (GOT) 86 U/L (15-37); BLOOD UREA NITROGEN 8 MG/DL (7-18); CALCIUM 8.1 MG/DL (8.5-10.1); CHLORIDE 103 MEQ/L (98-107); CREATININE 0.52 MG/DL (0.50-1.00); GLOMERULAR FILTRATION RATE 144 ML/MIN (>89); GLUCOSE,RANDOM 126 MG/DL (74-106); SODIUM (NA) 135 MEQ/L (136-145); TOTAL BILIRUBIN ADULT 0.5 MG/DL (0.2-1.0); TOTAL PROTEIN 6.9 GM/DL (6.4-8.2)
--- NOTE | 2017-05-08 08:36 | PD.OB.ANTE ---
Subjective Diagnosis: (1) Pre-eclampsia during in third trimester, antepartum Diagnosis: Principal (2) 29 weeks gestation of Diagnosis: Principal Interval History 27-year-old who is at 28 weeks 6 days admitted 05/07/17 close to midnight complaining of epigastric pain that began 2 hours prior and stated that it has been worsening since then. Overnight pain has resolved, pt now asymptomatic but pressures remain elevated, borderline severe despite dual medication therapy since approximately 24 weeks gestation. Pt of Dr. Rodriguez's as outpatient, I am covering today. Patient's history: had an unexpected severe hypertensive crisis on April 02 when she was admitted here to [facility] and started on Procardia 30 mg XL daily and labetalol 200 mg in the morning 100 mg in the afternoon and 200 mg at night. Total urine protein over 24 hours on that admission was 277 mg and she recently repeated the 24 hour urine protein but does not know the result. Patient states that her blood pressure cuffs at home have been normotensive and her follow-up visits to the office have been normal. She is also been taking aspirin daily. She received betamethasone on that admission April 03. No additional renal workup was performed at that time. Patient has had a follow-up ultrasound done 2 weeks ago to recheck the baby spine but no estimated weights were given to the patient. Patient denies headache, visual changes, or edema. This morning pt states no symptoms, epigastric pain resolved. Denies headache, blurred vision, edema, nausea of vomiting. Pain 0/10. Denies contractions or VB. Antepartum ROS: Reports: movement normal, Denies: New complaints, Loss of fluid, Vaginal bleeding, Contractions, Other Objective Vital Signs Vital Signs Date Time Temp Pulse Resp B/P (MAP) Pulse Ox O2 Delivery O2 Flow Rate FiO2 05/08/17 05:01 96 158/106 (123) 05/08/17 03:00 94 143/101 (115) 05/08/17 02:50 98.1 05/08/17 02:00 92 135/92 (106) 05/08/17 01:50 98.3 05/08/17 01:45 93 137/89 (105) 05/08/17 01:30 97 136/91 (106) 05/08/17 01:16 18 05/08/17 01:15 97 146/97 (113) 05/08/17 01:04 92 148/102 (117) 05/08/17 00:45 87 157/105 (122) 05/08/17 00:25 79 167/107 (127) 05/08/17 00:20 80 161/107 (125) 05/08/17 00:15 85 168/111 (130) 05/08/17 00:13 82 170/111 (130) 05/08/17 00:10 82 167/113 (131) 05/08/17 00:05 82 170/113 (132) 05/08/17 00:01 80 166/112 (130) 05/07/17 23:56 85 156/113 (127) 05/07/17 23:51 86 158/115 (129) 05/07/17 23:46 85 159/115 (130) 05/07/17 23:41 80 166/115 (132) 05/07/17 23:38 81 174/118 (136) 05/07/17 22:52 81 186/124 (144) Lab & Micro Results Test 05/07/17 23:00 05/07/17 23:07 05/08/17 07:30 Urine Color YELLOW Urine Turbidity CLEAR Urine pH 7.5 Urine Specific [place] 1.015 Urine Protein 300 mg/dL Urine Glucose (UA) NEG mg/dL Urine Ketones NEG mg/dL Urine Occult Blood TRACE Urine Nitrite NEG Urine Bilirubin NEG Urine Urobilinogen LESS THAN 2.0 MG/DL Urine Leukocyte Esterase NEG Urine RBC LESS THAN 1 /hpf Urine WBC 3 /hpf Urine Squamous Epithelial Cells 1 /hpf Urine Hyaline Casts 1 /lpf Urine Mucus FEW /lpf Microscopic Urinalysis Comment CULT NOT INDICATED Urine Opiates Screen NEG Urine Barbiturates Screen NEG Urine Amphetamines Screen NEG Urine Benzodiazepines Screen NEG Urine Cocaine Screen NEG Urine Cannabinoids Screen NEG White Blood Count 19.3 TH/MM3 17.6 TH/MM3 Red Blood Count 4.72 MIL/MM3 4.56 MIL/MM3 Hemoglobin 13.5 GM/DL 13.1 GM/DL Hematocrit 39.0 % 38.2 % Mean Corpuscular Volume 82.7 FL 83.7 FL Mean Corpuscular Hemoglobin 28.7 PG 28.7 PG Mean Corpuscular Hemoglobin Concent 34.7 % 34.3 % Red Cell Distribution Width 13.4 % 13.8 % Platelet Count 187 TH/MM3 149 TH/MM3 Mean Platelet Volume 8.9 FL 8.8 FL Blood Urea Nitrogen 10 MG/DL Creatinine 0.63 MG/DL Random Glucose 83 MG/DL Total Protein 7.1 GM/DL Albumin 2.9 GM/DL Calcium Level 9.2 MG/DL Uric Acid 4.9 MG/DL Alkaline Phosphatase 165 U/L Aspartate Amino Transf (AST/SGOT) 89 U/L Alanine Aminotransferase (ALT/SGPT) 65 U/L Total Bilirubin 0.4 MG/DL Sodium Level 137 MEQ/L Potassium Level 4.1 MEQ/L Chloride Level 102 MEQ/L Carbon Dioxide Level 25.2 MEQ/L Anion Gap 10 MEQ/L Estimat Glomerular Filtration Rate 115 ML/MIN Neutrophils (%) (Auto) 90.1 % Lymphocytes (%) (Auto) 8.6 % Monocytes (%) (Auto) 1.2 % Eosinophils (%) (Auto) 0.0 % Basophils (%) (Auto) 0.1 % Neutrophils # (Auto) 15.9 TH/MM3 Lymphocytes # (Auto) 1.5 TH/MM3 Monocytes # (Auto) 0.2 TH/MM3 Eosinophils # (Auto) 0.0 TH/MM3 Basophils # (Auto) 0.0 TH/MM3 CBC Comment DIFF FINAL Differential Comment Physical Exam GENERAL: Well-nourished, well-developed patient. CARDIOVASCULAR: Regular rate and rhythm without murmurs, gallops, or rubs. RESPIRATORY: Breath sounds equal bilaterally. No accessory muscle use. ABDOMEN/GI: Abdomen soft, non-tender. Fundus: [c/w dates] GENITOURINARY: External Genitalia:deferred FHT's: 130s no decels EXTREMITIES: No cyanosis or edema, non-tender, without signs of DVT. Assessment and Plan Problem List: (1) Pre-eclampsia during in third trimester, antepartum ICD Codes: O14.93 - Unspecified pre-eclampsia, third trimester Status: Acute (2) 29 weeks gestation of ICD Codes: Z3A.29 - 29 weeks gestation of Status: Acute Assessment and Plan 27 yo G1 at 28w6d admit 05/07/17 for severe epigastric pain, severely elevated BP , evaluation for preeclampsia 1) GHTN now with suspected preeclampsia: 24h urine due around 2330p tonight; AM labs show drop in plts from around 180s > 140s; CMP pending currently; AST/ALT elevated on admit; will keep NPO for now, continue magnesium sulfate, pt refuses eduardo at this time, reviewed in detail importance of need for strict I/ Os to detect any deterioration of renal function, pt still refuses; continue bedpan for now, complete bedrest on magnesium sulfate; consulted Neonatology, ultrasound pending, for official weight and dopplers; continue to monitor closely, pt aware may need to be delivered as soon as later today if any signs/ symptoms of severity - continue oral antihypertensives, pt currently on labetalol 200mg in AM & PM, 100mg at 2p; procardia 30 XL daily in AM 2) status: reassuring FHTs and tracing at this time, weight/dopplers pending 3) dispo: not meeting criteria for discharge, expect will stay through delivery Sun Suarez MD May 08, 2017 08:36
[2017-05-08] MEDS: NIFEdipine 30 MG SUSTAINED RELEASE TAB PO SCH (08:59)
[2017-05-08] MEDS ORDERED: SODIUM CHLORIDE 0.9% FLUSH 10 ML FLUSH IV FLUSH SCH ×2 (09:00)
--- NOTE | 2017-05-08 10:05 | PD.CONS ---
History of Present Illness Service Neonatology Consult Requested By Dr Shira Hall Reason for Consult Prematurity 28+ weeks Primary Care Physician No Primary Care Physician Diagnoses: (1) 29 weeks gestation of History of Present Illness Consult Maternal Hx: 27y/o, , female at 28+6 weeks gestation with diagnosis of IUGR. Mother admitted to [facility] on 05/07/17 secondary to induced hypertension and epigastric pain and is presently on Labetalol/Nifedipine/Magnesium and received 2 doses of steroids last 05/08/17. Most recent Ultrasound on 05/08 confirms intrauterine and suspected small baby(awaiting official report). EDC of 07/25/17 Estimated weight is? 1134 grams. Maternal risk factors/complications: PIH Maternal Labs: Blood type: O pos, Rubella , RPR , Hepatitis B , HIV , GC , CZ , GBS Maternal Medications: Labetalol/Nifedipine/Magnesium Social: Marital status: Family Hx: Substance Abuse: no Discussion: Discussed with both parents at bedside the risks of delivery at 28 weeks to include but not limited to RDS with increased risk of needing respiratory support, intubation and ventilation and surfactant administration. I also discussed the increased risk of IVH and its neurodevelopmental effect on the baby, ROP and need for screening, NEC and encouraged breast milk/Donor breast milk use, Jaundice and likely need for phototherapy, PDA and potential need for medical/surgical closure and a prolonged NICU stay to establish feeds. At this point mom snd Dad have no further questions at this point and I will be happy to address any further questions. . Greater than 50% of the consultation time was spent with the patient. Consult lasted 25mins Past Family Social History Allergies: Coded Allergies: Sulfa (Sulfonamide Antibiotics) (Verified Allergy, Severe, RASH, 05/07/17) albuterol (Verified Allergy, Severe, NAUSEA, 05/07/17) penicillin G (Verified Allergy, Severe, RASH, 05/07/17) Physical Exam Vital Signs Vital Signs Date Time Temp Pulse Resp B/P (MAP) Pulse Ox O2 Delivery O2 Flow Rate FiO2 05/08/17 09:08 18 05/08/17 09:08 103 167/111 (129) 05/08/17 08:50 19 05/08/17 05:01 96 158/106 (123) 05/08/17 03:00 94 143/101 (115) 05/08/17 02:50 98.1 05/08/17 02:00 92 135/92 (106) 05/08/17 01:50 98.3 05/08/17 01:45 93 137/89 (105) 05/08/17 01:30 97 136/91 (106) 05/08/17 01:16 18 05/08/17 01:15 97 146/97 (113) 05/08/17 01:04 92 148/102 (117) 05/08/17 00:45 87 157/105 (122) 05/08/17 00:25 79 167/107 (127) 05/08/17 00:20 80 161/107 (125) 05/08/17 00:15 85 168/111 (130) 05/08/17 00:13 82 170/111 (130) 05/08/17 00:10 82 167/113 (131) 05/08/17 00:05 82 170/113 (132) 05/08/17 00:01 80 166/112 (130) 05/07/17 23:56 85 156/113 (127) 05/07/17 23:51 86 158/115 (129) 05/07/17 23:46 85 159/115 (130) 05/07/17 23:41 80 166/115 (132) 05/07/17 23:38 81 174/118 (136) 05/07/17 22:52 81 186/124 (144) Laboratory Laboratory Tests Test 05/07/17 23:00 05/07/17 23:07 05/08/17 07:30 Urine Color YELLOW Urine Turbidity CLEAR Urine pH 7.5 Urine Specific [place] 1.015 Urine Protein 300 Urine Glucose (UA) NEG Urine Ketones NEG Urine Occult Blood TRACE Urine Nitrite NEG Urine Bilirubin NEG Urine Urobilinogen LESS THAN 2.0 Urine Leukocyte Esterase NEG Urine RBC LESS THAN 1 Urine WBC 3 Urine Squamous Epithelial Cells 1 Urine Hyaline Casts 1 Urine Mucus FEW Microscopic Urinalysis Comment CULT NOT INDICATED Urine Random Creatinine 60 Urine Random Total Protein 507 Urine Protein/Creatinine Ratio 8.45 Urine Opiates Screen NEG Urine Barbiturates Screen NEG Urine Amphetamines Screen NEG Urine Benzodiazepines Screen NEG Urine Cocaine Screen NEG Urine Cannabinoids Screen NEG White Blood Count 19.3 17.6 Red Blood Count 4.72 4.56 Hemoglobin 13.5 13.1 Hematocrit 39.0 38.2 Mean Corpuscular Volume 82.7 83.7 Mean Corpuscular Hemoglobin 28.7 28.7 Mean Corpuscular Hemoglobin Concent 34.7 34.3 Red Cell Distribution Width 13.4 13.8 Platelet Count 187 149 Mean Platelet Volume 8.9 8.8 Blood Urea Nitrogen 10 8 Creatinine 0.63 0.52 Random Glucose 83 126 Total Protein 7.1 6.9 Albumin 2.9 2.7 Calcium Level 9.2 8.1 Uric Acid 4.9 5.1 Alkaline Phosphatase 165 165 Aspartate Amino Transf (AST/SGOT) 89 86 Alanine Aminotransferase (ALT/SGPT) 65 73 Total Bilirubin 0.4 0.5 Sodium Level 137 135 Potassium Level 4.1 4.4 Chloride Level 102 103 Carbon Dioxide Level 25.2 23.0 Anion Gap 10 9 Estimat Glomerular Filtration Rate 115 144 Neutrophils (%) (Auto) 90.1 Lymphocytes (%) (Auto) 8.6 Monocytes (%) (Auto) 1.2 Eosinophils (%) (Auto) 0.0 Basophils (%) (Auto) 0.1 Neutrophils # (Auto) 15.9 Lymphocytes # (Auto) 1.5 Monocytes # (Auto) 0.2 Eosinophils # (Auto) 0.0 Basophils # (Auto) 0.0 CBC Comment DIFF FINAL Differential Comment Result Diagram: 05/08/1772905/08/17729 Assessment and Plan Problem List: (1) 29 weeks gestation of ICD Codes: Z3A.29 - 29 weeks gestation of Status: Acute Plan: NICU aware Will attend delivery Continue present management Assessment and Plan 28+6 week baby with IUGR @ est weight 1111grams. Mom admitted for PIH Discussed Condition With Parents Physician Attestation Magui Sanchez MD May 08, 2017 10:05
[2017-05-08] MEDS ORDERED: ONDANSETRON HCL 4 MG/2 ML VIAL IV ONE (12:00)
[2017-05-08] MEDS ORDERED: OXYTOCIN 10 UNIT/ML AMP IV ONE (12:00)
[2017-05-08] MEDS ORDERED: PHENYLEPH/NS 1000 MCG/10 ML SYR IV ONE (12:00)
[2017-05-08] MEDS ORDERED: LACTATED RINGER'S 1000 ML INJ 1,000 ML IV ONE (12:00)
[2017-05-08] MEDS ORDERED: ACETAMINOPHEN 1000 MG/100 ML 100 ML IV ONE ×2 (12:07→18:00)
[2017-05-08] MEDS ORDERED: MORPHINE SULFATE PF 5 MG/10 ML VIAL ONE (12:07)
[2017-05-08] MEDS ORDERED: fentaNYL CITRATE 250 MCG/5 ML AMP ONE (12:07)
[2017-05-08] MEDS: LACTATED RINGER'S 1000 ML INJ 1,000 ML IV SCH (12:20)
[2017-05-08] MEDS ORDERED: EPIDURAL-DO NOT ADMINISTER ANTICOAGULANTS PRN (13:00)
[2017-05-08] MEDS ORDERED: EPIDURAL-DIPHENHYDRAMINE HCL 50 MG CAP PO PRN (13:00)
[2017-05-08] MEDS ORDERED: CLINDAMYCIN INJ 900 MG in SODIUM CHLORIDE 0.9% INJ 100 ML IV SCH (13:00)
[2017-05-08] MEDS ORDERED: EPIDURAL-NALOXONE HCL 0.4 MG/ML AMP IV PUSH PRN (13:00)
[2017-05-08] MEDS ORDERED: EPIDURAL-NO SYSTEMIC NARCOTICS PRN (13:00)
[2017-05-08] MEDS ORDERED: EPIDURAL-DIPHENHYDRAMINE HCL 50 MG/ML VIAL IV PUSH PRN (13:00)
[2017-05-08] MEDS: LABETALOL HCL 100 MG TAB PO SCH (14:00)
--- NOTE | 2017-05-08 14:05 | PD.OB.DELI ---
Procedure Note Section Procedure Pre Op Diagnosis: (1) Severe pre-eclampsia complicating childbirth (2) Pre-eclampsia during in third trimester, antepartum (3) 29 weeks gestation of Post Op Diagnosis: (1) S/P primary low transverse (2) Severe pre-eclampsia complicating childbirth (3) Pre-eclampsia during in third trimester, antepartum (4) 29 weeks gestation of Performed by Sun Suarez Procedure: Primary Low Transverse Sec Indication for delivery: Maternal medical problems (severe preeclampsia, abnormal dopplers) Previous condition: None Informed consent obtained: For anesthesia, For procedure Confirmed correct: Patient, Procedure, Site, Time-out taken Anesthesia: Spinal Medication prior to procedure: As documented in eMAR Monitoring during procedure: Blood pressure monitoring, credit counselor, Pulse oximetry Urinary catheter: Inserted using sterile technique, To dependent drainage, ml urine output (50) Sterile preparation: Duraprep, In usual fashion, With drapes to expose affected area Position: Supine with wedge to right side Operative Features Skin Incision: Pfannenstiel Uterine Incision: Low transverse w/knife / blunt ext Membranes Ruptured: Artificially, Amount of liquid (low), Appearance of fluid ( clear) Presentation: Vertex Delivery date: May 08, 2017 Delivery time: 13:26 Delivery of infant: Umbilical cord (body cord delivered through and reduced) : Female Weight: 960g (2#2oz) Status of infant: Viable, Cord blood, Nursery present (NICU present) Placenta delivered: Intact, Sent to pathology (due to prematurity) Medications: Antibiotics (Clindamycin 900mg IV preop) Estimated blood loss: 700 mL Procedure tolerated: Well Maternal Condition: Stable Condition: Stable (in NICU) Procedure in detail see dictated op note for full details Sun Suarez MD May 08, 2017 14:05
[2017-05-08] MEDS ORDERED: SIMETHICONE 80 MG CHEWABLE TAB PO PRN (14:15)
[2017-05-08] MEDS ORDERED: ZOLPIDEM TARTRATE 5 MG TAB PO PRN (14:15)
[2017-05-08] MEDS ORDERED: OXYTOCIN 30 UNITS-500ML PREMIX 500 ML IV ONE (14:15)
[2017-05-08] MEDS ORDERED: oxyCODONE/ACETAMINOPHEN 5 MG/325 MG TAB PO PRN ×2 (14:15)
[2017-05-08] MEDS: SODIUM CHLORIDE 0.9% FLUSH 10 ML FLUSH IV FLUSH SCH ×2 (14:15→21:00)
[2017-05-08] MEDS ORDERED: KETOROLAC TROMETHAMINE 60 MG/2 ML (IM) VIAL IM PRN (14:15)
[2017-05-08] MEDS ORDERED: SODIUM CHLORIDE 0.9% FLUSH 10 ML FLUSH IV FLUSH PRN (14:15)
[2017-05-08] MEDS ORDERED: OXYTOCIN 30 UNITS-500ML PREMIX 500 ML ONE (14:46)
--- NOTE | 2017-05-08 14:50 | MP ---
cc: Sun Suarez MD DATE OF OPERATION: 05/08/2017 DATE OF SURGERY: 05/08/2017 PREOPERATIVE DIAGNOSES: 1. Torres intrauterine at 28 weeks and 6 days. 2. Preeclampsia with severe features. 3. Gestational diabetic. POSTOPERATIVE DIAGNOSES: 1. Torres intrauterine at 28 weeks and 6 days. 2. Preeclampsia with severe features. 3. Gestational diabetic. 4. Postoperative day #0 status post primary low transverse delivery. INDICATION FOR PROCEDURE: Keena Cho is a 27-year-old 2, now para 0-1-0-1, who had been seen and evaluated in the office with complication of elevated blood pressures starting at around 23-24 weeks gestation. The patient had previously been hospitalized for an episode of hypertensive crisis at the beginning of 04/2017, at which time she did receive betamethasone x 2 and was started on dual antihypertensive therapy. The patient continued to be followed in the office, did not feel well on 05/07/17. She was counseled to come to the hospital for evaluation, at which time her blood pressure was found to be in severe range. The patient was admitted. Workup was started. She did rule in for preeclampsia with elevated liver functions, as well as low platelets and epigastric pain, urine protein creatinine ratio was greater than 8 and urine dip was 3+ protein. On ultrasound imaging of the fetus, growth was found to be not IUGR but had dropped off compared to previous at only 16th percentile and although BPP was 8/8, there were intermittent abnormal Dopplers, both the MCA was abnormal and umbilical artery Dopplers intermittently abnormal with an episode of absent end-diastolic flow. Due to all these issues, the case was discussed with both and maternal medicine team and decision was made for delivery due to severity of symptoms and signs. PROCEDURE PERFORMED; Primary low transverse delivery. SURGEON: Sun Suarez MD RESIDENTIAL WORKER SURGEON: Homar Ag MD TYPE OF ANESTHESIA: Spinal. ESTIMATED BLOOD LOSS: 700 mL. IV FLUID REPLACEMENT: 2 liters. URINE OUTPUT: 50 mL draining in the Mclain bag at the end of the procedure. The patient had voided just prior to the procedure as she had refused a Mclain catheter during the antepartum admission process. SPECIMEN: Placenta. INTRAOPERATIVE FINDINGS: Include a premature viable female infant weighing 960 grams which correlates to 2 pounds 2 ounces. Apgars are pending at this time. Clear amniotic fluid. Placenta was smaller than expected for gestational age but intact. Uterus, bilateral fallopian tubes and ovaries were within normal limits. Note: after was re-weighed in NICU weight was changed to 1050g. PROPHYLAXIS: Due to patient's penicillin allergy, clindamycin 900 IV was given preoperatively. SCDs were also on and functioning throughout the entire case. PROCEDURE IN DETAIL: After reviewing the informed consent, the patient was taken to the operating suite where a timeout was performed to identify the patient, planned procedure and any known allergies to drugs or drug products. The patient was then placed sitting up on the exam table and spinal anesthesia was administered without difficulty and found to be adequate. The patient was then gently laid in dorsal supine position with a bump under her right side and abdomen and perineum were prepped and draped in normal sterile fashion. A Mclain catheter was placed using sterile technique. A Pfannenstiel type skin incision was made with the scalpel, carried down to the underlying layer of fascia with the Bovie. Fascia was incised in the midline and incision was extended laterally with sharp dissection using the Ratliff scissors. The superior aspect of the fascial incision was elevated with Shelly clamps, rectus muscles were dissected off both bluntly and sharply with Ratliff scissors. Kochers were then moved to the inferior aspect of the fascial incision and again rectus muscles were dissected off sharply. Rectus muscles were then in the midline, peritoneum was identified, elevated with hemostat and entered sharply. The incision was extended superiorly and inferiorly with good visualization of intraabdominal contents. It was felt that it would be safe to make a low transverse uterine incision. A low transverse uterine incision was made with the scalpel, it was extended bluntly. 's head was elevated and grasped out through the hysterotomy, amniotic sac was ruptured with clear fluid and the rest of the 's body readily delivered. There was a body cord which was delivered through. The was immediately evaluated the NICU staff. Delayed cord clamping was performed at 45 seconds. The cord was then clamped and cut and infant was handed off to the awaiting NICU staff. The placenta delivered spontaneously with gentle cord traction and fundal massage. The uterus was then exteriorized, cleared of all clots and debris with sterile moist lap sponges and hysterotomy was repaired in a double layer, first in a running locked layer, then in an imbricating layer with #1 chromic. Excellent hemostasis was noted. Posterior cul-de-sac was irrigated copiously with warm sterile saline. Uterus was returned to the abdomen. Additional irrigation and suction was performed. Peritoneum was closed in a running layer with 2-0 chromic. Fascia was closed in a running layer with #1 Vicryl. The subcutaneous tissue was irrigated copiously. A series of interrupted sutures using 2-0 chromic was then used to close the subcutaneous space. The skin was closed with 3-0 Monocryl in subcuticular fashion and excellent hemostasis was noted. A standard dressing was placed. Procedure was concluded at this point. DISPOSITION: The patient will stay on labor and delivery for additional magnesium sulfate therapy to treat severe preeclampsia. is NICU status due to prematurity. Estimated length of stay for patient is 3-4 postoperative days. MD MIRIAM Nance/ALEXA , 02:02 PM , 02:48 PM LEV
[2017-05-08] MEDS ORDERED: KETOROLAC TROMETHAMINE 30 MG/ML (IVP) VIAL ONE (14:54)
[2017-05-08] MEDS: MAGNESIUM SULFATE 40 GM PREMIX 1,000 ML IV SCH (15:38)
[2017-05-08] MEDS ORDERED: LACTATED RINGER'S 1000 ML INJ 1,000 ML IV SCH (19:06)
[2017-05-08] MEDS: DOCUSATE SODIUM 50 MG/SENNA 8.6 MG TAB PO SCH (21:00)
[2017-05-08] MEDS: LABETALOL HCL 200 MG TAB PO SCH (21:10)
[2017-05-09] VITALS (19 sets, daily range): BP systolic 114–147; BP diastolic 79–92; PULSE 72–83; RESP 14–18; TEMP 97.5–98; O2SAT 95
[2017-05-09] MEDS ORDERED: OXYTOCIN 30 UNITS-500ML PREMIX 500 ML IV PRN (00:15)
[2017-05-09] MEDS: LACTATED RINGER'S 1000 ML INJ 1,000 ML IV SCH (01:40)
[2017-05-09 05:50] LABS: AUTOMATED NEUTROPHIL # 13.8 TH/MM3 (1.8-7.7); BASOPHIL % 0.1 % (0.0-2.0); HEMATOCRIT 28.6 % (35.0-46.0); HEMOGLOBIN 9.9 GM/DL (11.6-15.3); LYMPH % 13.3 % (9.0-44.0); LYMPHOCYTE # 2.3 TH/MM3 (1.0-4.8); MEAN CELL VOLUME 83.8 FL (80.0-100.0); MEAN CORPUSCULAR HEMOGLOBIN 29.2 PG (27.0-34.0); MEAN CORPUSCULAR HGB CONC 34.8 % (32.0-36.0); MEAN PLATELET VOLUME 8.8 FL (7.0-11.0); MONO % 5.8 % (0.0-8.0); NEUT % 80.8 % (16.0-70.0); PLATELET COUNT 130 TH/MM3 (150-450); RED BLOOD COUNT 3.41 MIL/MM3 (4.00-5.30); RED CELL DISTRIBUTION WIDTH 13.3 % (11.6-17.2); WHITE BLOOD COUNT 17.1 TH/MM3 (4.0-11.0)
[2017-05-09 06:19] LABS: ALBUMIN 2.2 GM/DL (3.4-5.0); BICARBONATE 24.9 MEQ/L (21.0-32.0); CALCIUM 5.9 MG/DL (8.5-10.1); CREATININE 0.46 MG/DL (0.50-1.00)
[2017-05-09 06:27] LABS: TOTAL BILIRUBIN ADULT 0.3 MG/DL (0.2-1.0); TOTAL PROTEIN 5.6 GM/DL (6.4-8.2)
[2017-05-09 06:52] LABS: CALCIUM-PROTEIN CORRECTED 6.6 MG/DL (8.5-10.1)
[2017-05-09] MEDS: IBUPROFEN 600 MG TAB PO PRN ×2 (08:03→14:41)
[2017-05-09] MEDS: SODIUM CHLORIDE 0.9% FLUSH 10 ML FLUSH IV FLUSH SCH (09:00)
[2017-05-09] MEDS: DOCUSATE SODIUM 50 MG/SENNA 8.6 MG TAB PO SCH ×2 (09:00→21:12)
[2017-05-09] MEDS: LABETALOL HCL 200 MG TAB PO SCH ×2 (09:11→21:11)
[2017-05-09] MEDS: NIFEdipine 30 MG SUSTAINED RELEASE TAB PO SCH (09:11)
--- NOTE | 2017-05-09 09:40 | HHI.OB ---
Subjective Post Operative Day: 1 Remarks POD#1, s/p Cd, PE with severe features. Stable on Mag.c/o dizziness on mag. Objective Vitals/I&O Vital Signs Date Time Temp Pulse Resp B/P (MAP) Pulse Ox O2 Delivery O2 Flow Rate FiO2 05/09/17 09:00 80 18 139/92 (108) 05/09/17 07:53 97.5 05/09/17 07:53 18 05/09/17 07:00 72 123/83 (96) 05/09/17 06:51 18 05/09/17 06:00 18 05/09/17 06:00 76 136/92 (107) 05/09/17 05:00 18 05/09/17 04:00 81 128/82 (97) 05/09/17 03:20 16 05/09/17 02:28 16 05/09/17 01:00 77 134/87 (103) 05/09/17 00:20 98.0 16 05/09/17 00:15 83 95 05/09/17 00:01 78 128/85 (99) 05/08/17 23:01 80 140/92 (108) 05/08/17 23:00 18 05/08/17 22:00 80 154/101 (118) 05/08/17 22:00 100 05/08/17 21:00 18 05/08/17 19:57 98.1 18 05/08/17 19:00 84 143/101 (115) 05/08/17 18:05 18 05/08/17 17:05 18 05/08/17 17:00 82 142/100 (114) 05/08/17 16:09 16 05/08/17 16:00 77 148/97 (114) 05/08/17 15:32 77 131/95 (107) 05/08/17 14:46 77 20 153/106 (122) 98 05/08/17 14:30 76 16 151/99 (116) 05/08/17 14:30 98 05/08/17 14:15 75 20 147/97 (114) 05/08/17 14:03 97.9 05/08/17 14:03 79 18 98 05/08/17 11:34 18 05/08/17 09:48 99 153/110 (124) Result Diagram: 05/09/17 0504 05/09/17 0504 Objective Remarks GENERAL: Well-nourished, well-developed patient. CARDIOVASCULAR: Regular rate and rhythm without murmurs, gallops, or rubs. RESPIRATORY: Breath sounds equal bilaterally. No accessory muscle use. ABDOMEN/GI: Abdomen soft, non-tender, bowel sounds present. Incision: Clean, dry and intact. Fundus: Firm, non-tender at umbilicus. GENITOURINARY: Light to moderate bleeding. EXTREMITIES: No cyanosis or edema, non-tender, without signs of DVT. Medications and IVs Current Medications Medications (Trade) Dose Ordered Sig/Maria Route Start Time Stop Time Status Last Admin (Zofran Inj) 4 mg Q6H PRN IV PUSH 05/07/17 23:00 05/08/17 17:26 Lactated Ringer's 1,000 ml @ 75 mls/hr [id number] IV 05/07/17 23:00 05/09/17 01:40 Magnesium Sulfate 1,000 ml @ 50 mls/hr Q20H IV 05/07/17 23:00 07/09/17 13:30 05/08/17 15:38 (Calcium Gluconate Inj) 1 gm UNSCH PRN IV PUSH 05/07/17 23:00 (Trandate) 100 mg DAILY@1400 PO 05/08/17 14:00 (Trandate) 200 mg Q12HR PO 05/08/17 21:00 05/09/17 09:11 (Procardia Xl) 30 mg DAILY PO 05/08/17 09:00 05/09/17 09:11 Lactated Ringer's 1,000 ml @ 100 mls/hr Q10H IV 05/08/17 19:06 05/09/17 15:05 Oxytocin 500 ml @ 100 mls/hr UNSCH X1 PRN IV 05/09/17 00:15 05/10/17 00:14 (NS Flush) 2 ml BID IV FLUSH 05/08/17 14:15 (NS Flush) 2 ml UNSCH PRN IV FLUSH 05/08/17 14:15 (Mylicon Chew) 80 mg QID PRN PO 05/08/17 14:15 (Motrin) 600 mg Q6H PRN PO 05/08/17 14:15 05/09/17 08:03 (Toradol Inj) 30 mg Q6H PRN IM 05/08/17 14:15 05/09/17 14:14 05/08/17 14:55 (Percocet 5-325 Mg) 1 tab Q4H PRN PO 05/08/17 14:15 (Percocet 5-325 Mg) 2 tab Q4H PRN PO 05/08/17 14:15 (Jenn-Colace) 1 tab Q12H PO 05/08/17 21:00 (Ambien) 5 mg HS PRN PO 05/08/17 14:15 (M-M-R Ii Inj) 0.5 ml ONCE ONCE SQ 05/09/17 16:00 05/09/17 16:01 (Boostrix Inj) 0.5 ml ONCE ONCE IM 05/09/17 16:00 05/09/17 16:01 Miscellaneous Information NO SYSTEMIC NARCOTICS TO BE GIVEN FO... UNSCH PRN .XX 05/08/17 13:00 05/09/17 12:59 (Narcan Inj) 0.4 mg UNSCH PRN IV PUSH 05/08/17 13:00 05/09/17 12:59 (Benadryl Inj) 25 mg Q6H PRN IV PUSH 05/08/17 13:00 05/09/17 12:59 (Benadryl) 50 mg Q6H PRN PO 05/08/17 13:00 05/09/17 12:59 Miscellaneous Information ALL NURSING DEPARTMENTS UNSCH PRN .XX 05/08/17 13:00 05/09/17 12:59 Assessment/Plan Problem List: (1) Pre-eclampsia during in third trimester, antepartum ICD Codes: O14.93 - Unspecified pre-eclampsia, third trimester Status: Acute (2) 29 weeks gestation of ICD Codes: Z3A.29 - 29 weeks gestation of Status: Acute Assessment and Plan 27 yo G1 at 28w6d admit 05/07/17 for severe epigastric pain, severely elevated BP, S/P Cd. 1. CHTN superimposed Pe, stable BP, will wean off Mag. sulfate. advance care as tolerated. continue Procardia and Labetalol. Discharge Planning Does not meet criteria Attending Attestation seen by Cesar Frank MD May 09, 2017 09:40
[2017-05-09] MEDS ORDERED: AMMONIA AROMATIC INHALANT 0.33 ML ONE (12:19)
[2017-05-09] MEDS: LABETALOL HCL 100 MG TAB PO SCH (14:00)
[2017-05-09] MEDS ORDERED: DIPHTH/TETANUS/ACEL PERTUSSIS (BOOSTER) 0.5 ML VIAL/PFS IM ONE (16:00)
[2017-05-09] MEDS ORDERED: MEASLES, MUMPS, RUBELLA VACCINE 0.5 ML VIAL SQ ONE (16:00)
[2017-05-10 05:52] LABS: AUTOMATED NEUTROPHIL # 11.9 TH/MM3 (1.8-7.7); BASOPHIL % 0.2 % (0.0-2.0); EOSINOPHIL % 0.3 % (0.0-4.0); HEMATOCRIT 26.9 % (35.0-46.0); HEMOGLOBIN 9.2 GM/DL (11.6-15.3); LYMPH % 21.3 % (9.0-44.0); LYMPHOCYTE # 3.5 TH/MM3 (1.0-4.8); MEAN CELL VOLUME 85.1 FL (80.0-100.0); MEAN CORPUSCULAR HEMOGLOBIN 29.2 PG (27.0-34.0); MEAN CORPUSCULAR HGB CONC 34.3 % (32.0-36.0); MEAN PLATELET VOLUME 8.8 FL (7.0-11.0); MONO % 6.4 % (0.0-8.0); MONOCYTE # 1.1 TH/MM3 (0-0.9); NEUT % 71.8 % (16.0-70.0); PLATELET COUNT 146 TH/MM3 (150-450); RED BLOOD COUNT 3.16 MIL/MM3 (4.00-5.30); RED CELL DISTRIBUTION WIDTH 13.9 % (11.6-17.2); WHITE BLOOD COUNT 16.5 TH/MM3 (4.0-11.0)
[2017-05-10 06:30] LABS: ALBUMIN 2.3 GM/DL (3.4-5.0); BICARBONATE 25.6 MEQ/L (21.0-32.0); CALCIUM 6.9 MG/DL (8.5-10.1); CALCIUM-PROTEIN CORRECTED 7.6 MG/DL (8.5-10.1); CREATININE 0.58 MG/DL (0.50-1.00); TOTAL BILIRUBIN ADULT 0.3 MG/DL (0.2-1.0); TOTAL PROTEIN 5.8 GM/DL (6.4-8.2)
[2017-05-10 07:59] VITALS: BP 149/98; PULSE 82; RESP 18; TEMP 98.4
[2017-05-10] MEDS: DOCUSATE SODIUM 50 MG/SENNA 8.6 MG TAB PO SCH ×2 (08:35→21:23)
[2017-05-10] MEDS: LABETALOL HCL 200 MG TAB PO SCH ×2 (08:35→21:23)
[2017-05-10] MEDS: SODIUM CHLORIDE 0.9% FLUSH 10 ML FLUSH IV FLUSH SCH ×2 (08:38→21:23)
--- NOTE | 2017-05-10 08:44 | HHI.OB ---
Subjective Post Operative Day: 2 Remarks No CANCHOLA/blurry vision/ruq pain. Min pain at angles of incision. Passing flatus. Objective Vitals/I&O Vital Signs Date Time Temp Pulse Resp B/P (MAP) Pulse Ox O2 Delivery O2 Flow Rate FiO2 05/10/17 07:59 98.4 82 18 149/98 (115) 05/09/17 21:13 83 147/92 (110) 05/09/17 17:48 82 14 128/92 (104) 05/09/17 13:40 97.8 82 16 125/79 (94) 05/09/17 13:00 18 05/09/17 12:28 81 114/82 (93) 05/09/17 10:44 18 05/09/17 09:43 18 05/09/17 09:00 80 18 139/92 (108) Result Diagram: 05/10/17 0505/10/17 05 Objective Remarks GENERAL: Well-nourished, well-developed patient. CARDIOVASCULAR: Regular rate and rhythm without murmurs, gallops, or rubs. RESPIRATORY: Breath sounds equal bilaterally. No accessory muscle use. ABDOMEN/GI: Abdomen soft, non-tender, bowel sounds present. Incision: Clean, dry and intact. Fundus: Firm, non-tender at umbilicus. GENITOURINARY: Light to moderate bleeding. EXTREMITIES: No cyanosis or edema, non-tender, without signs of DVT. Medications and IVs Current Medications Medications (Trade) Dose Ordered Sig/Maria Route Start Time Stop Time Status Last Admin (Zofran Inj) 4 mg Q6H PRN IV PUSH 05/07/17 23:00 05/08/17 17:26 Lactated Ringer's 1,000 ml @ 75 mls/hr [id number] IV 05/07/17 23:00 05/09/17 01:40 (Calcium Gluconate Inj) 1 gm UNSCH PRN IV PUSH 05/07/17 23:00 (Trandate) 100 mg DAILY@1400 PO 05/08/17 14:00 (Trandate) 200 mg Q12HR PO 05/08/17 21:00 05/09/17 21:11 (Procardia Xl) 30 mg DAILY PO 05/08/17 09:00 05/09/17 09:11 (NS Flush) 2 ml BID IV FLUSH 05/08/17 14:15 (NS Flush) 2 ml UNSCH PRN IV FLUSH 05/08/17 14:15 (Mylicon Chew) 80 mg QID PRN PO 05/08/17 14:15 (Motrin) 600 mg Q6H PRN PO 05/08/17 14:15 05/09/17 14:41 (Percocet 5-325 Mg) 1 tab Q4H PRN PO 05/08/17 14:15 (Percocet 5-325 Mg) 2 tab Q4H PRN PO 05/08/17 14:15 (Jenn-Colace) 1 tab Q12H PO 05/08/17 21:00 05/09/17 21:12 (Ambien) 5 mg HS PRN PO 05/08/17 14:15 Assessment/Plan Problem List: (1) Pre-eclampsia during in third trimester, antepartum ICD Codes: O14.93 - Unspecified pre-eclampsia, third trimester Status: Acute (2) 29 weeks gestation of ICD Codes: Z3A.29 - 29 weeks gestation of Status: Acute Assessment and Plan 27 yo G1 at 28w6d admit 05/07/17 for severe epigastric pain, severely elevated BP, S/P Cd. 1. CHTN superimposed Pre E- s/p 24 hour of magnesium. On ProcardiaXL 30ml and Labetalol total 500mg a day. BP mild now with nl bp yesterday. Will d/c procardia and see how she does on just labetalol. LFT normal range, plt stable 140. 2) POD 2- continue supportive care Discharge Planning Does not meet criteria Shira Hall MD May 10, 2017 08:44
[2017-05-10 11:25] VITALS: BP 135/89
[2017-05-10] MEDS: LABETALOL HCL 100 MG TAB PO SCH (14:41)
[2017-05-10 20:00] VITALS: BP 157/102; PULSE 86; RESP 18; TEMP 98.2
[2017-05-10 21:25] VITALS: BP 149/99; PULSE 86
[2017-05-11] VITALS (9 sets, daily range): BP systolic 138–159; BP diastolic 89–107; PULSE 18–89; RESP 8–18; TEMP 98.1–98.3; O2SAT 99
[2017-05-11] MEDS: LABETALOL HCL 200 MG TAB PO SCH (08:19)
[2017-05-11] MEDS: DOCUSATE SODIUM 50 MG/SENNA 8.6 MG TAB PO SCH (08:19)
[2017-05-11] MEDS: SODIUM CHLORIDE 0.9% FLUSH 10 ML FLUSH IV FLUSH SCH (08:19)
[2017-05-11] MEDS: LACTATED RINGER'S 1000 ML INJ 1,000 ML IV SCH (08:26)
--- NOTE | 2017-05-11 08:30 | HHI.OB ---
Subjective Post Operative Day: 3 Remarks feels well, but BP still high off procardia XL 30mg, +BM Objective Vitals/I&O Vital Signs Date Time Temp Pulse Resp B/P (MAP) Pulse Ox O2 Delivery O2 Flow Rate FiO2 05/10/17 11:25 135/89 (104) Result Diagram: 05/10/17 0505/10/17 05 Objective Remarks GENERAL: Well-nourished, well-developed patient. CARDIOVASCULAR: Regular rate and rhythm without murmurs, gallops, or rubs. RESPIRATORY: Breath sounds equal bilaterally. No accessory muscle use. ABDOMEN/GI: Abdomen soft, non-tender, bowel sounds present. Incision: Clean, dry and intact. Fundus: Firm, non-tender at umbilicus. GENITOURINARY: Light to moderate bleeding. EXTREMITIES: No cyanosis or edema, non-tender, without signs of DVT. Medications and IVs Current Medications Medications (Trade) Dose Ordered Sig/Maria Route Start Time Stop Time Status Last Admin (Zofran Inj) 4 mg Q6H PRN IV PUSH 05/07/17 23:00 05/08/17 17:26 Lactated Ringer's 1,000 ml @ 75 mls/hr [id number] IV 05/07/17 23:00 05/09/17 01:40 (Calcium Gluconate Inj) 1 gm UNSCH PRN IV PUSH 05/07/17 23:00 (Trandate) 100 mg DAILY@1400 PO 05/08/17 14:00 05/10/17 14:41 (Trandate) 200 mg Q12HR PO 05/08/17 21:00 05/11/17 08:19 (NS Flush) 2 ml BID IV FLUSH 05/08/17 14:15 05/10/17 08:38 (NS Flush) 2 ml UNSCH PRN IV FLUSH 05/08/17 14:15 (Mylicon Chew) 80 mg QID PRN PO 05/08/17 14:15 (Motrin) 600 mg Q6H PRN PO 05/08/17 14:15 05/09/17 14:41 (Percocet 5-325 Mg) 1 tab Q4H PRN PO 05/08/17 14:15 (Percocet 5-325 Mg) 2 tab Q4H PRN PO 05/08/17 14:15 (Jenn-Colace) 1 tab Q12H PO 05/08/17 21:00 05/10/17 21:23 (Ambien) 5 mg HS PRN PO 05/08/17 14:15 Assessment/Plan Problem List: (1) Pre-eclampsia during in third trimester, antepartum ICD Codes: O14.93 - Unspecified pre-eclampsia, third trimester Status: Acute (2) 29 weeks gestation of ICD Codes: Z3A.29 - 29 weeks gestation of Status: Acute (3) delivery delivered ICD Codes: O82 - Encounter for delivery without indication Assessment and Plan 27 yo G1 at 28w6d admit 05/07/17 for severe epigastric pain, severely elevated BP, S/P Cd. 1. CHTN superimposed Pre E- s/p 24 hour of magnesium. On ProcardiaXL 30ml and Labetalol total 500mg a day. 2) POD 3- continue supportive care 3) pt desires discharge if stable Discharge Planning routine Attending Attestation seen by Delmi Hirsch MD May 11, 2017 08:30
[2017-05-11] MEDS ORDERED: NIFEdipine 30 MG SUSTAINED RELEASE TAB PO SCH (09:00)
[2017-05-11] MEDS ORDERED: LABETALOL HCL 200 MG TAB PO SCH (14:00)
--- NOTE | 2017-05-11 21:21 | HHI.DCPOC ---
Discharge Care Plan Your Health Problems Are: Pelvic pain Report Symptoms to Your Doctor -Temperature above 100.5 degrees -Redness, of incision or excessive or foul smelling drainage -Unusual pain or calf pain -Increased vaginal bleeding -Painful or difficulty urinating -Feelings of extreme sadness or anxiety after 2 weeks Goals to Promote Your Health * To prevent worsening of your condition and complications * To maintain your health at the optimal level Directions to Meet Your Goals Take your medications as prescribed Follow your dietary instruction Follow activity as directed Ensure plenty of rest for recovery Drink fluids for hydration Keep your appointments as scheduled Take your immunizations and boosters as scheduled If your symptoms worsen call your PCP, if no PCP go to Urgent Care Center or Emergency Room Smoking is Dangerous to Your Health. Avoid second hand smoke Call the 24-hour crisis hotline for domestic abuse at Delmi Rodriguez MD May 11, 2017 21:21
== END 2017-05-11 17:29 | disposition home or self-care (01) | DRG 765 ==
LOC: HOBED 22:24 → H2EA 23:02 → H1EA 05-09 14:27
PROVIDERS: ADMIT Obstetrics & Gynecology; ATTEND Obstetrics & Gynecology
PROC: 10D00Z1 Extraction of Products of Conception, Low, Open Approach (ICD-10-PCS; principal; 2017-05-08)
DX: O14.14 Severe pre-eclampsia complicating childbirth (principal); O13.3 Gestational [pregnancy-induced] hypertension without significant proteinuria, third trimester; O24.419 Gestational diabetes mellitus in pregnancy, unspecified control; O14.13 Severe pre-eclampsia, third trimester; R42 Dizziness and giddiness; Z37.0 Single live birth; Z3A.28 28 weeks gestation of pregnancy; Z79.82 Long term (current) use of aspirin; Z23 Encounter for immunization
CPT/HCPCS: 59025; 76816; 76819; 76820; 80053; 80307; 81001; 82570; 84156; 84550; 85025; 85027; 86850; 86900; 86901; 88307; J0131; J0702; J1885; J2274; J2370; J2405; J2590; J3010; J3475; J7120